=== PATIENT | male | born 1975 | race Caucasian/White ===

== ENCOUNTER → 2017-11-22 | Outpatient (CLI) | payer OTHER ==
[~2017-11-22] MED LIST: CRESTOR PO; FLUOXETINE PO; INVOKANA PO; KAZANO PO; LEVEMIR100 UNIT/1 INJ; LISINOPRIL PO; RISPERIDONE1 MG PO
--- NOTE | 2017-11-22 12:11 | Diagnostic Imaging Report ---
PROCEDURE: SMALL BOWEL SERIES OPERATORS: Rebel Louise MD Comparison: None. Indications: BLOOD IN STOOLS, ABDOMINAL PAIN Technique: Small bowel follow through exam was performed using oral barium. Preliminary image was obtained before administration of contrast and serial overhead images were obtained after administration of oral barium. Fluoroscopy was performed and spot images were obtained. Findings: SMALL BOWEL FOLLOW THROUGH: Small bowel loops are normal in caliber and distribution. Spot compression views of the terminal ileum are normal. The transit time was normal. Oral contrast reached the proximal colon 3 hours after administration. IMPRESSION: Normal small bowel follow through. Dictated by: Rebel Louise M.D. on 11/22/2017 at 12:19 Electronically approved by: Rebel Louise M.D. on 11/22/2017 at 12:19
== END ==
LOC: DX 07:26
PROVIDERS: ATTEND Internal Medicine Gastroenterology
DX: R19.7 Diarrhea, unspecified (principal); R10.9 Unspecified abdominal pain
CPT/HCPCS: 74250